=== PATIENT | male | born 2000 | race Caucasian/White ===

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

== ENCOUNTER 2019-10-23 14:48 | Emergency (ER) | payer OTHER ==
[2019-10-23 15:22] VITALS: BP 143/65
--- NOTE | 2019-10-23 15:31 | UC ---
Respiratory Complaint HPI - HPI Summary HPI Summary: approx 2 wks of cough after having post nasal drip and sinus issues. Denies fever. cough keeps him up at night. no sick contacts or outside [place] travel. - History of Current Complaint Chief Complaint: UCGeneralIllness Stated Complaint: COUGH Time Seen by Provider: 10/23/19 15:15 Hx Obtained From: Patient Pain Intensity: 0 Character: Cough: Nonproductive Aggravating Factors: Allergens Alleviating Factors: Nothing - Allergies/Home Medications Allergies/Adverse Reactions: Allergies Allergy/AdvReac Type Severity Reaction Status Date / Time No Known Allergies Allergy Verified 10/23/19 15:22 PMH/Surg Hx/FS Hx/Imm Hx - Additional Past Medical History Additional PMH: no chronic illness. Previously Healthy: Yes - Surgical History Surgical History: Yes Surgery Procedure, Year, and Place: tonsillectomy. left wrist x2 - Family History Known Family History: Positive: Cardiac Disease - Social History Alcohol Use: Rare Substance Use Type: Marijuana Substance Use Comment - Amount & Last Used: every other day Smoking Status (MU): Never Smoked Tobacco Have You Smoked in the Last Year: No Review of Systems All Other Systems Reviewed And Are Negative: Yes Constitutional: Negative: Fever, Chills, Fatigue ENT: Positive: Nasal Discharge, Sinus Congestion. Negative: Sore Throat, Sinus Pain/Tenderness Respiratory: Positive: Cough. Negative: Shortness Of Breath, Other - wheezing Neurological: Negative: Headache Physical Exam Triage Information Reviewed: Yes Appearance: Well-Appearing Vital Signs: Initial Vital Signs Temp 98.5 F 10/23/19 15:17 Pulse 89 10/23/19 15:17 Resp 18 10/23/19 15:17 BP 143/65 10/23/19 15:17 Pulse Ox 100 10/23/19 15:17 Vital Signs Reviewed: Yes Eyes: Positive: Conjunctiva Clear ENT: Positive: Pharynx normal, TMs normal, Uvula midline. Negative: Sinus tenderness Neck: Positive: Supple, Nontender, No Lymphadenopathy Respiratory Exam: Normal Cardiovascular Exam: Normal Neurological: Positive: Alert Skin: Negative: Rashes Respiratory Course/Dx - Course Course Of Treatment: Cough for almost 2 wks assoc. w/ sinus symptoms. Suspect post nasal drip causing cough. Afebrile and clear lungs on exam. good O2. will tx w/ cyndi cunningham and advised otc meds to help. - Differential Dx/Diagnosis Differential Diagnosis/HQI/PQRI: Asthma, Bronchitis, Sinusitis, Other Provider Diagnosis: Cough Discharge ED - Sign-Out/Discharge Documenting (check all that apply): Patient Departure All imaging exams completed and their final reports reviewed: No Studies - Discharge Plan Condition: Good Disposition: HOME Prescriptions: Benzonatate CAP* [Tessalon 100 MG CAP*] 100 mg PO TID 5 Days #15 cap Patient Education Materials: Upper Respiratory Infection (ED) Referrals: No Primary Care Phys,NOPCP [Primary Care Provider] - Additional Instructions: if worsening please see your main provider. - Billing Disposition and Condition Condition: GOOD Disposition: Home - Attestation Statements Provider Attestation: Per institutional requirements, I have reviewed the chart, however, I was not consulted specifically or made aware of this patient by the midlevel provider. I did not personally evaluate, interact with, or disposition this patient. EK
== END 2019-10-23 15:42 | disposition home or self-care (01) ==
LOC: UCCORT 14:48
DX: R05 Cough (principal); R09.82 Postnasal drip
CPT/HCPCS: 99212; G0463